=== PATIENT | female | born 1995 ===

== ENCOUNTER 2020-05-04 07:00 | Outpatient (CLI) | payer BC ==
--- NOTE | 2020-05-04 13:34 | XRAY Report ---
PROCEDURE: Chest 2 View X-Ray INDICATIONS: VIRAL SYNDROME TECHNIQUE: 2 view(s) of the chest. COMPARISON: None. FINDINGS: Surgical changes and devices: None. Lungs and pleura: No pleural effusions or pneumothorax. Lungs are clear. Mediastinum: Mediastinal contours are normal. Heart size is normal. Bones and chest wall: No suspicious bony abnormalities. Soft tissues appear unremarkable. IMPRESSION: No acute disease. Reviewed by: Pillo Wells MD on 05/04/2020 1:32 PM PST Approved by: Pillo Wells MD on 05/04/2020 1:32 PM PST Station ID: [id number]
== END 2020-05-04 23:59 | disposition home or self-care (01) ==
LOC: DI.N 07:00
PROVIDERS: ATTEND Physician Assistant Medical
DX: B34.9 Viral infection, unspecified (principal); Z20.828 Contact with and (suspected) exposure to other viral communicable diseases
CPT/HCPCS: 87275; 87276

== ENCOUNTER 2021-11-07 18:03 | Outpatient (CLI) | payer BC | END 2021-11-07 18:04 | disposition home or self-care (01) | LOC: LAB 18:03 | PROVIDERS: ATTEND Family Medicine | DX: R30.0 Dysuria (principal) | CPT/HCPCS: 87086 ==